=== PATIENT | male | born 1950 | race Native Hawaiian/Other Pacific Islander ===

== ENCOUNTER 2018-08-14 11:05 | Outpatient (CLI) | payer OTHER | END 2018-08-14 20:00 | disposition home or self-care (01) | LOC: RAD 11:05 | DX: Z86.11 Personal history of tuberculosis (principal) ==

== ENCOUNTER → 2018-08-16 | Day surgery (SDC) | payer OTHER | END | disposition home or self-care (01) | LOC: OR 06:59 | PROC: 0DBP8ZZ Excision of Rectum, Via Natural or Artificial Opening Endoscopic (ICD-10-PCS; principal; 2018-08-16) | PROC: 0DBN8ZZ Excision of Sigmoid Colon, Via Natural or Artificial Opening Endoscopic (ICD-10-PCS; 2018-08-16) | PROC: 0DBM8ZZ Excision of Descending Colon, Via Natural or Artificial Opening Endoscopic (ICD-10-PCS; 2018-08-16) | DX: C20 Malignant neoplasm of rectum (principal); D12.7 Benign neoplasm of rectosigmoid junction; D12.4 Benign neoplasm of descending colon; K63.5 Polyp of colon; K57.30 Diverticulosis of large intestine without perforation or abscess without bleeding; Z86.010 Personal history of colon polyps; Z12.11 Encounter for screening for malignant neoplasm of colon | CPT/HCPCS: J2001; J2250; J2704; J3490 ==

== ENCOUNTER 2018-10-19 13:36 | Outpatient (CLI) | payer OTHER ==
[2018-10-19 13:52] LABS: PLATELET COUNT 534 K/uL (142-355)
[2018-10-19 14:16] LABS: POTASSIUM 4.4 mmol/L (3.6-5.2)
== END 2018-10-19 22:52 | disposition home or self-care (01) ==
LOC: LAB 13:36
PROVIDERS: Internal Medicine
DX: R53.83 Other fatigue (principal); C18.9 Malignant neoplasm of colon, unspecified
CPT/HCPCS: 80053; 85027

== ENCOUNTER 2018-12-01 16:48 | Emergency (ER) | payer OTHER ==
[~2018-12-01] VITALS: Ht 182.9 cm; Wt 88.5 kg
[2018-12-01 17:10] VITALS: BP 130/85; TEMP 97.3
== END 2018-12-01 18:42 | disposition home or self-care (01) ==
LOC: ED 16:48
PROC: 0T9B70Z Drainage of Bladder with Drainage Device, Via Natural or Artificial Opening (ICD-10-PCS; principal; 2018-12-01)
DX: R33.8 Other retention of urine (principal); Z98.890 Other specified postprocedural states
CPT/HCPCS: 51702; 99282; 99283

== ENCOUNTER 2019-10-04 12:07 | Outpatient (CLI) | payer OTHER ==
[2019-10-04 12:52] LABS: PLATELET COUNT 269 K/uL (142-355)
[2019-10-04 12:54] LABS: POTASSIUM 3.5 mmol/L (3.6-5.2)
== END 2019-10-04 20:41 | disposition home or self-care (01) ==
LOC: LABW 12:07
PROVIDERS: Internal Medicine
DX: Z00.00 Encounter for general adult medical examination without abnormal findings (principal); I10 Essential (primary) hypertension; E11.9 Type 2 diabetes mellitus without complications; Z13.820 Encounter for screening for osteoporosis; E55.9 Vitamin D deficiency, unspecified; N40.0 Benign prostatic hyperplasia without lower urinary tract symptoms
CPT/HCPCS: 36415; 80053; 80061; 82306; 84153; 84443; 85027

== ENCOUNTER 2020-01-08 13:54 | Outpatient (CLI) | payer OTHER | END 2020-01-08 20:01 | disposition home or self-care (01) | LOC: LAB 13:54 | PROVIDERS: ATTEND Nurse Practitioner Family | DX: R50.9 Fever, unspecified (principal); R52 Pain, unspecified; R19.7 Diarrhea, unspecified; Z11.59 Encounter for screening for other viral diseases | CPT/HCPCS: 87635; G2023; U0003 ==

== ENCOUNTER 2020-08-05 11:00 | Outpatient (CLI) | payer OTHER | END 2020-08-05 23:59 | disposition home or self-care (01) | LOC: RAD 11:00 | PROVIDERS: ATTEND Internal Medicine | DX: M25.561 Pain in right knee (principal); M25.562 Pain in left knee; M25.511 Pain in right shoulder; M25.512 Pain in left shoulder ==